=== PATIENT | female | born 1975 | race Caucasian/White ===

== ENCOUNTER → 2016-03-23 | Outpatient (CLI) | payer BC ==
[~2016-03-23] MED LIST: FENU1CAP2 PO; LBT100 PO; LEVO175T PO; MTR600X PO
== END | disposition home or self-care (01) ==
LOC: C.PAPS 11:07
PROVIDERS: ATTEND Obstetrics & Gynecology
DX: Z12.4 Encounter for screening for malignant neoplasm of cervix (principal)